=== PATIENT | male | born 1970 | race African-American/Black ===

== ENCOUNTER 2023-02-16 18:49 | Inpatient (IN) | payer OTHER ==
[~2023-02-16] VITALS: Ht 182.9 cm; Wt 77.1 kg
[2023-02-16 18:53] VITALS: BP_SYST 138; PULSE 85; RESP 18; TEMP 98.3; O2SAT 98
[2023-02-16] MEDS ORDERED: metFORMIN HCL 500 MG TABLET PO ONE (19:15)
[2023-02-16] MEDS ORDERED: NACL 0.9% 2,000 ML IV ONE (19:15)
[2023-02-16 19:28] LABS: HEMATOCRIT 39.9 % (36-54); HEMOGLOBIN 13.7 g/dL (14.0-18.0); LYMPHOCYTES # (AUTO) 1.4 K/uL (1.0-5.5); LYMPHOCYTES % (AUTO) 28.8 % (20.5-51.5); MEAN CORPUSCULAR HEMOGLOBIN 36 pg (27-31); MEAN CORPUSCULAR HGB CONC 34 % (32-36); MEAN CORPUSCULAR VOLUME 104 fL (79.0-98.0); MONOCYTES # (AUTO) 0.5 K/uL (0.0-1.0); MONOCYTES % (AUTO) 10.8 % (1.7-9.3); NEUTROPHILS # (AUTO) 2.9 K/uL (1.8-7.7); NEUTROPHILS % (AUTO) 58.4 % (40.0-70.0); PLATELET COUNT (AUTO) 161 K/uL (130-430); RED BLOOD CELL COUNT(AUTO) 3.84 MIL/uL (4.2-6.2); RED CELL DISTRIBUTION WIDTH 13.3 % (9.0-15.0); WHITE BLOOD COUNT (AUTO) 4.9 K/uL (4.8-10.8)
[2023-02-16 19:52] LABS: ALANINE AMINOTRANSFERASE 41 U/L (12-78); ALBUMIN 3.9 g/dL (3.4-4.8); ANION GAP 23 (5-15); ASPARTATE AMINOTRANSFERASE 41 U/L (10-37); CALCIUM 9.8 mg/dL (8.4-11.0); CHLORIDE 93 mmol/L (98-107); CHOLESTEROL 247 mg/dL (<200); CREATININE 1.79 mg/dL (0.55-1.30); GFR AFRICAN AMERICAN 52 mL/min (>90); HDL CHOLESTEROL 48 mg/dL (>45); TOTAL BILIRUBIN 0.5 mg/dL (0.0-1.0); TRIGLYCERIDES 465 mg/dL (30-150); UREA NITROGEN, BLOOD 25 mg/dL (8-21)
[2023-02-16 19:54] LABS: GLUCOSE 412 mg/dL (70-99)
[2023-02-16 19:58] LABS: BILIRUBIN,URINE 3+ (NEGATIVE); CLARITY/URINE CLEAR (CLEAR); COLOR,URINE YELLOW (YELLOW); GLUCOSE,URINE 3+ (NEGATIVE); KETONES,URINE 3+ (NEGATIVE); LEUKOCYTE ESTERASE ,URINE NEGATIVE (NEGATIVE); NITRITE, URINE NEGATIVE (NEGATIVE); PROTEIN URINE 2+ (NEGATIVE)
[2023-02-16 20:07] LABS: BLOOD, URINE TRACE (NEGATIVE)
[2023-02-16 20:11] LABS: BACTERIA,URINE RARE /HPF (None Seen); RBC,URINE 0-3 /HPF (0-3); WBC,URINE 0-3 /HPF (0-3)
[2023-02-16] MEDS ORDERED: INSULIN REGULAR, HUMAN 10 UNITS/0.1 ML, 3 ML VIAL IVP ONE (20:30)
[2023-02-16] MEDS ORDERED: INSULIN REGULAR, HUMAN 100 UNITS in NS 99 ML IV ONE ×2 (20:30)
[2023-02-16] MEDS ORDERED: INSULIN REGULAR, HUMAN 100 UNITS in NS 99 ML IV PRN ×2 (21:00)
[2023-02-16] MEDS ORDERED: DEXTROSE 50% JECT 50 ML DISP.SYRIN IVP PRN (21:00)
[2023-02-16] MEDS: SODIUM BICARBONATE 8.4% JECT 50 MEQ/50 ML SYRINGE IVP ONE ×2 (21:02→21:05)
[2023-02-16 21:17] LABS: ACETONE, SERUM MODERATE (NEGATIVE)
[2023-02-17] VITALS (19 sets, daily range): BP systolic 101–130; PULSE 77–98; RESP 13–20; TEMP 96.6–98.1; O2SAT 92–100
[2023-02-17] MEDS: NACL 0.9% 1,000 ML IV SCH ×2 (00:28→06:03)
[2023-02-17 01:04] LABS: ALBUMIN 3.2 g/dL (3.4-4.8); CALCIUM 8.5 mg/dL (8.4-11.0); CREATININE 1.65 mg/dL (0.55-1.30); TOTAL BILIRUBIN 0.5 mg/dL (0.0-1.0)
[2023-02-17 04:58] LABS: BASOPHILS % (AUTO) 0.9 % (0.0-2.0); EOSINOPHILS # (AUTO) 0.1 K/uL (0.0-0.4); EOSINOPHILS % (AUTO) 1.2 % (0.0-4.0); HEMATOCRIT 34.5 % (36-54); LYMPHOCYTES # (AUTO) 1.5 K/uL (1.0-5.5); LYMPHOCYTES % (AUTO) 33.7 % (20.5-51.5); MEAN CORPUSCULAR HEMOGLOBIN 35 pg (27-31); MEAN CORPUSCULAR HGB CONC 35 % (32-36); MEAN CORPUSCULAR VOLUME 102 fL (79.0-98.0); MONOCYTES # (AUTO) 0.4 K/uL (0.0-1.0); MONOCYTES % (AUTO) 9.7 % (1.7-9.3); NEUTROPHILS # (AUTO) 2.4 K/uL (1.8-7.7); NEUTROPHILS % (AUTO) 54.5 % (40.0-70.0); PLATELET COUNT (AUTO) 148 K/uL (130-430); RED BLOOD CELL COUNT(AUTO) 3.39 MIL/uL (4.2-6.2); RED CELL DISTRIBUTION WIDTH 13.1 % (9.0-15.0); WHITE BLOOD COUNT (AUTO) 4.5 K/uL (4.8-10.8)
[2023-02-17 05:26] LABS: ALBUMIN 3.1 g/dL (3.4-4.8); CALCIUM 8.3 mg/dL (8.4-11.0); CREATININE 1.53 mg/dL (0.55-1.30); TOTAL BILIRUBIN 0.4 mg/dL (0.0-1.0)
[2023-02-17] MEDS ORDERED: D5NS 1,000 ML IV SCH (10:00)
[2023-02-17 10:23] LABS: CALCIUM 8.5 mg/dL (8.4-11.0); CREATININE 1.65 mg/dL (0.55-1.30)
[2023-02-17 10:27] LABS: PHOSPHORUS 3.4 mg/dL (2.7-4.5)
[2023-02-17] MEDS ORDERED: GLUCOSE (DEXTROSE) ORAL GEL -Adults PO PRN (10:30)
[2023-02-17] MEDS ORDERED: D5W 1,000 ML IV PRN (10:30)
[2023-02-17] MEDS ORDERED: DEXTROSE 50%-WATER 50 ML DISP.SYRIN IVP PRN (10:30)
[2023-02-17] MEDS: INSULIN GLARGINE 100 UNITS/ML, 10 ML VIAL SUBCUT SCH ×2 (11:04→21:15)
[2023-02-17] MEDS: INSULIN LISPRO SLIDING SCALE 100 UNITS/ML, 3 ML VIAL (humaLOG) SUBCUT PRN ×3 (13:48→21:14)
[2023-02-17] MEDS ORDERED: NALOXONE HCL 0.4 MG/ML AMP (NARCAN) IVP PRN (21:30)
[2023-02-18] VITALS: BP_SYST 118; PULSE 92; RESP 16; TEMP 96.2; O2SAT 98
[2023-02-18] MEDS: HYDROcodone/ACETAMIN 5-325 MG TAB (NORCO/ VICODIN) PO PRN ×3 (04:48→20:22)
[2023-02-18 05:13] LABS: BASOPHILS % (AUTO) 0.9 % (0.0-2.0); HEMATOCRIT 35.7 % (36-54); HEMOGLOBIN 12.3 g/dL (14.0-18.0); LYMPHOCYTES # (AUTO) 1.2 K/uL (1.0-5.5); LYMPHOCYTES % (AUTO) 30.6 % (20.5-51.5); MEAN CORPUSCULAR HEMOGLOBIN 35 pg (27-31); MEAN CORPUSCULAR HGB CONC 35 % (32-36); MEAN CORPUSCULAR VOLUME 102 fL (79.0-98.0); MONOCYTES # (AUTO) 0.4 K/uL (0.0-1.0); MONOCYTES % (AUTO) 10.9 % (1.7-9.3); NEUTROPHILS # (AUTO) 2.2 K/uL (1.8-7.7); NEUTROPHILS % (AUTO) 56.6 % (40.0-70.0); PLATELET COUNT (AUTO) 148 K/uL (130-430); RED BLOOD CELL COUNT(AUTO) 3.49 MIL/uL (4.2-6.2); RED CELL DISTRIBUTION WIDTH 13.3 % (9.0-15.0); WHITE BLOOD COUNT (AUTO) 3.9 K/uL (4.8-10.8)
[2023-02-18 05:43] LABS: CALCIUM 8.3 mg/dL (8.4-11.0); CREATININE 1.67 mg/dL (0.55-1.30)
[2023-02-18] MEDS: INSULIN LISPRO SLIDING SCALE 100 UNITS/ML, 3 ML VIAL (humaLOG) SUBCUT PRN ×4 (06:01→20:30)
[2023-02-18] MEDS ORDERED: INSULIN NPH 100 UNITS/ML 10 ML VIAL SUBCUT ONE (07:30)
[2023-02-18 07:40] VITALS: BP_SYST 118; PULSE 77; RESP 18; TEMP 96.2; O2SAT 99
[2023-02-18 07:57] VITALS: O2SAT 99
[2023-02-18] MEDS: INSULIN GLARGINE 100 UNITS/ML, 10 ML VIAL SUBCUT SCH ×2 (09:22→20:28)
[2023-02-18 11:21] VITALS: BP_SYST 111; PULSE 68; RESP 16; TEMP 96.7; O2SAT 95
[2023-02-18 15:10] VITALS: BP_SYST 110; PULSE 76; RESP 16; TEMP 97.2; O2SAT 93
[2023-02-18 19:30] VITALS: BP_SYST 111; PULSE 86; RESP 18; TEMP 97.9; O2SAT 100
[2023-02-18] MEDS: NICOTINE 14 MG/24 HR PATCH.TD24 TD ONE ×2 (21:00→23:03)
[2023-02-19 00:05] VITALS: BP_SYST 127; PULSE 96; RESP 17; TEMP 97.8; O2SAT 96
[2023-02-19 05:44] LABS: BASOPHILS # (AUTO) 0.1 K/uL (0.0-0.2); BASOPHILS % (AUTO) 1.1 % (0.0-2.0); EOSINOPHILS # (AUTO) 0.1 K/uL (0.0-0.4); EOSINOPHILS % (AUTO) 0.8 % (0.0-4.0); HEMATOCRIT 41.2 % (36-54); HEMOGLOBIN 14.5 g/dL (14.0-18.0); LYMPHOCYTES # (AUTO) 1.8 K/uL (1.0-5.5); LYMPHOCYTES % (AUTO) 28.3 % (20.5-51.5); MEAN CORPUSCULAR HEMOGLOBIN 36 pg (27-31); MEAN CORPUSCULAR HGB CONC 35 % (32-36); MEAN CORPUSCULAR VOLUME 102 fL (79.0-98.0); MONOCYTES # (AUTO) 0.6 K/uL (0.0-1.0); MONOCYTES % (AUTO) 8.8 % (1.7-9.3); NEUTROPHILS # (AUTO) 3.8 K/uL (1.8-7.7); PLATELET COUNT (AUTO) 170 K/uL (130-430); RED BLOOD CELL COUNT(AUTO) 4.05 MIL/uL (4.2-6.2); RED CELL DISTRIBUTION WIDTH 13.4 % (9.0-15.0); WHITE BLOOD COUNT (AUTO) 6.3 K/uL (4.8-10.8)
[2023-02-19 06:02] LABS: CALCIUM 9.4 mg/dL (8.4-11.0); CREATININE 1.31 mg/dL (0.55-1.30)
[2023-02-19] MEDS: HYDROcodone/ACETAMIN 5-325 MG TAB (NORCO/ VICODIN) PO PRN ×2 (06:50→14:07)
[2023-02-19] MEDS: INSULIN LISPRO SLIDING SCALE 100 UNITS/ML, 3 ML VIAL (humaLOG) SUBCUT PRN (06:52)
[2023-02-19 08:00] VITALS: BP_SYST 116; PULSE 93; RESP 16; TEMP 97.2; O2SAT 99
[2023-02-19] MEDS ORDERED: NICOTINE 14 MG/24 HR PATCH.TD24 TD SCH (09:00)
[2023-02-19] MEDS ORDERED: INSULIN GLARGINE 100 UNITS/ML, 10 ML VIAL SUBCUT SCH (09:00)
[2023-02-19 11:00] VITALS: BP_SYST 135; PULSE 86; RESP 16; TEMP 97.3; O2SAT 97
[2023-02-19] MEDS ORDERED: LANC1EAC MC (11:33)
[2023-02-19] MEDS ORDERED: INSU100I22 SQ (11:33)
[2023-02-19] MEDS ORDERED: INSU100V SUBCUT (14:01)
[2023-02-19 15:07] VITALS: BP_SYST 135; PULSE 80; RESP 16; TEMP 97.1; O2SAT 99
[2023-02-19 15:59] VITALS: BP_SYST 137; PULSE 91; RESP 12; TEMP 98.3; O2SAT 99
== END 2023-02-19 16:20 | disposition home or self-care (01) | DRG 637 ==
LOC: SED 18:49 → SIC 20:53 → SMU 02-17 17:04 → STU 02-17 23:14 → SMU 02-18 17:15
PROVIDERS: ADMIT Specialist; ATTEND Specialist
DX: E11.10 Type 2 diabetes mellitus with ketoacidosis without coma (principal); N17.0 Acute kidney failure with tubular necrosis; E78.1 Pure hyperglyceridemia; R31.9 Hematuria, unspecified; D64.9 Anemia, unspecified; E78.00 Pure hypercholesterolemia, unspecified; F17.200 Nicotine dependence, unspecified, uncomplicated; E11.22 Type 2 diabetes mellitus with diabetic chronic kidney disease; N18.9 Chronic kidney disease, unspecified; Z79.4 Long term (current) use of insulin
CPT/HCPCS: 36415; 36600; 71045; 74181; 80048; 80053; 80061; 81000; 82009; 82803; 82962; 83037; 83735; 83880; 84100; 84484; 85025; 87081; 93005; 96365; 96375; 96376; 99285; G0378; J1815

== ENCOUNTER 2023-12-25 10:04 | Emergency (ER) | payer OTHER ==
[~2023-12-25] VITALS: Ht 182.9 cm; Wt 83.0 kg
[~2023-12-25 10:04] MED LIST: INSU100I22 SQ; INSU100V SUBCUT; LANC1EAC MC
[2023-12-25 10:12] VITALS: BP_SYST 164; PULSE 103; RESP 15; TEMP 98.6; O2SAT 95
[2023-12-25 10:49] LABS: BASOPHILS # (AUTO) 0.1 K/uL (0.0-0.2); BASOPHILS % (AUTO) 0.9 % (0.0-2.0); EOSINOPHILS % (AUTO) 0.7 % (0.0-4.0); HEMATOCRIT 47.2 % (36-54); HEMOGLOBIN 16.3 g/dL (14.0-18.0); LYMPHOCYTES # (AUTO) 0.7 K/uL (1.0-5.5); LYMPHOCYTES % (AUTO) 11.5 % (20.5-51.5); MEAN CORPUSCULAR HEMOGLOBIN 35 pg (27-31); MEAN CORPUSCULAR HGB CONC 34 % (32-36); MEAN CORPUSCULAR VOLUME 101 fL (79.0-98.0); MONOCYTES # (AUTO) 0.5 K/uL (0.0-1.0); MONOCYTES % (AUTO) 8.6 % (1.7-9.3); NEUTROPHILS # (AUTO) 4.6 K/uL (1.8-7.7); NEUTROPHILS % (AUTO) 78.3 % (40.0-70.0); PLATELET COUNT (AUTO) 150 K/uL (130-430); RED BLOOD CELL COUNT(AUTO) 4.67 MIL/uL (4.2-6.2); RED CELL DISTRIBUTION WIDTH 13.7 % (9.0-15.0); WHITE BLOOD COUNT (AUTO) 5.9 K/uL (4.8-10.8)
[2023-12-25 10:55] LABS: CALCIUM 9.2 mg/dL (8.4-11.0); CREATININE 1.09 mg/dL (0.55-1.30); POTASSIUM 4.2 mmol/L (3.5-5.1)
[2023-12-25] MEDS ORDERED: METF-379 PO (11:10)
[2023-12-25] MEDS ORDERED: AZIT-93 PO (11:10)
[2023-12-25] MEDS ORDERED: ROSU10TA29 PO (11:10)
[2023-12-25] MEDS ORDERED: LISI1TAB55 PO (11:10)
[2023-12-25] MEDS ORDERED: CLINDAMYCIN 600 MG in D5W 50 ML IV ONE (11:15)
[2023-12-25] MEDS: CLINDAMYCIN PHOS 600 MG/ D5W 50 ML PREMIX IV ONE (12:23)
[2023-12-25] MEDS ORDERED: CLIN-142 PO (12:26)
[2023-12-25] MEDS ORDERED: IBUP-1971 PO (12:26)
[2023-12-25 13:00] VITALS: BP_SYST 158; PULSE 96; RESP 22; TEMP 98.1; O2SAT 95
== END 2023-12-25 12:55 | disposition home or self-care (01) ==
LOC: SED 10:04
DX: L03.211 Cellulitis of face (principal); Z79.899 Other long term (current) drug therapy
CPT/HCPCS: 99285; 96365; 70487; 80048; 85025; 87040; 36415; 82948; 83605; 82397; J3490; Q9967